=== PATIENT | male | born 1980 | race Caucasian/White ===

== ENCOUNTER 2017-08-20 10:05 | Inpatient (IN) | payer SELFPAY ==
[2017-08-20 10:39] LABS: ADD MAN DIFF? NO
[2017-08-20 10:42] LABS: BASO # 0.1 x10^3/uL (0.0-0.2); BASO % 1 % (0-3); EOS # 0.1 x10^3/uL (0.0-0.7); EOS % 1 % (0-3); HEMATOCRIT 44.4 % (39.0-53.0); HEMOGLOBIN 15.1 g/dL (13.0-17.5); LYMPH # 1.5 x10^3/uL (1.0-4.8); LYMPH % 15 % (24-48); MEAN CORPUSCULAR HEMOGLOBIN 30 pg (25-35); MEAN CORPUSCULAR HGB CONC 34 g/dL (31-37); MEAN CORPUSCULAR VOLUME 87 fL (79-100); MONO % 10 % (0-9); NEUT # 7.5 x10^3uL (1.8-7.7); NEUT % 74 % (31-73); PLATELET COUNT 172 x10^3/uL (140-400); RED BLOOD COUNT 5.09 x10^6/uL (4.30-5.70); RED CELL DISTRIBUTION WIDTH 13.5 % (11.5-14.5); WHITE BLOOD COUNT 10.1 x10^3/uL (4.0-11.0)
[2017-08-20 10:56] LABS: ANION GAP 13 (6-14); BLOOD UREA NITROGEN 18 mg/dL (8-26); BUN/CREATININE RATIO 18 (6-20); CALCIUM 8.2 mg/dL (8.5-10.1); CARBON DIOXIDE 27 mmol/L (21-32); CHLORIDE 104 mmol/L (98-107); GFR 84.1; GLUCOSE 120 mg/dL (70-99); POTASSIUM 3.1 mmol/L (3.5-5.1); SODIUM 144 mmol/L (136-145)
[2017-08-20] MEDS: IV NORMAL SALINE 1000ML BAG 1,000 ML IV ×2 (10:59→21:35)
[2017-08-20] MEDS: ASPIRIN CHEWABLE 81 MG TABLET. PO (11:00)
[2017-08-20] MEDS: NITROGLYCERIN SUBLINGUAL 0.4 MG BOTTLE OF 25. SL (11:00)
[2017-08-20 11:02] LABS: ALBUMIN 3.6 g/dL (3.4-5.0); ALBUMIN/GLOBULIN RATIO 1.1 (1.0-1.7); ALK PHOS 73 U/L (46-116); ALT (SGPT) 35 U/L (16-63); AST (SGOT) 35 U/L (15-37); LIPASE 133 U/L (73-393); TOTAL BILIRUBIN 0.7 mg/dL (0.2-1.0)
[2017-08-20 11:07] LABS: TROPONINI 6.403 ng/mL (0.000-0.055)
[2017-08-20] MEDS: ONDANSETRON PF 4 MG/2 ML VIAL. IV (11:15)
[2017-08-20] MEDS: POTASSIUM CHLORIDE 10MEQ 100 ML IV ×4 (11:46→14:49)
[2017-08-20] MEDS ORDERED: IODIXANOL 320 MG/ML 100 ML VIAL. (11:56)
[2017-08-20] MEDS ORDERED: LIDOCAINE 1% Multi-Dose 20 ML VIAL. (11:56)
[2017-08-20] MEDS: HEPARIN for IV BOLUS 10,000 UNIT/10 ML VIAL. IV (12:00)
[2017-08-20] MEDS ORDERED: fentaNYL PF VIAL 100 MCG/2 ML VIAL (12:03)
[2017-08-20] MEDS ORDERED: MIDAZOLAM HCL/PF 5 MG/5 ML VIAL. (12:04)
[2017-08-20] MEDS: HEPARIN 25,000UTS/500ML PREMIX 500 ML IV (12:07)
[2017-08-20] MEDS: fentaNYL PF VIAL 100 MCG/2 ML VIAL IV ×4 (12:10→16:58)
[2017-08-20] MEDS: IODIXANOL 320 MG/ML 100 ML VIAL. IART (13:10)
[2017-08-20] MEDS: LIDOCAINE 2% 20 ML VIAL. IJ (13:11)
[2017-08-20] MEDS: MIDAZOLAM HCL/PF 5 MG/5 ML VIAL. IV (13:12)
[2017-08-20] MEDS ORDERED: NITROGLYCERIN SUBLINGUAL 0.4 MG BOTTLE OF 25. SL (13:45)
[2017-08-20] MEDS ORDERED: 0.9 % SODIUM CHLORIDE 10 ML DISP.SYRIN. IV (13:45)
[2017-08-20] MEDS ORDERED: ONDANSETRON PF 4 MG/2 ML VIAL. IV (17:15)
[2017-08-20 23:39] LABS: UNFRACTIONATED HEPARIN TESTING < 0.10 IU/mL (0.30-0.70)
[2017-08-21] MEDS: HEPARIN for IV BOLUS 10,000 UNIT/10 ML VIAL. IV ×2 (00:05→06:40)
[2017-08-21] MEDS: BISMUTH SUBSALICYLATE 262 MG/15 ML ORAL.SUSP 236ML BOTTLE. PO (00:11)
[2017-08-21 06:11] LABS: HEMATOCRIT 42.5 % (39.0-53.0); HEMOGLOBIN 14.3 g/dL (13.0-17.5); MEAN CORPUSCULAR HEMOGLOBIN 30 pg (25-35); MEAN CORPUSCULAR HGB CONC 34 g/dL (31-37); MEAN CORPUSCULAR VOLUME 88 fL (79-100); PLATELET COUNT 168 x10^3/uL (140-400); RED BLOOD COUNT 4.81 x10^6/uL (4.30-5.70); RED CELL DISTRIBUTION WIDTH 13.5 % (11.5-14.5); WHITE BLOOD COUNT 8.6 x10^3/uL (4.0-11.0)
[2017-08-21 06:20] LABS: UNFRACTIONATED HEPARIN TESTING 0.17 IU/mL (0.30-0.70)
[2017-08-21 07:02] LABS: ALBUMIN 3.1 g/dL (3.4-5.0); ALK PHOS 65 U/L (46-116); ALT (SGPT) 37 U/L (16-63); ANION GAP 10 (6-14); AST (SGOT) 46 U/L (15-37); CALCIUM 7.5 mg/dL (8.5-10.1); CARBON DIOXIDE 24 mmol/L (21-32); CHLORIDE 108 mmol/L (98-107); CHOLESTEROL 117 mg/dL (0-200); CREATININE 0.9 mg/dL (0.7-1.3); DIRECT BILIRUBIN 0.1 mg/dL (0.0-0.2); GLUCOSE 94 mg/dL (70-99); HDLC 23 mg/dL (40-60); LDLC 74 mg/dL (0-100); MAGNESIUM 1.9 mg/dL (1.8-2.4); NON-HDL CHOLESTEROL 94 mg/dL (0-129); POTASSIUM 3.9 mmol/L (3.5-5.1); SODIUM 142 mmol/L (136-145); TOTAL BILIRUBIN 0.5 mg/dL (0.2-1.0); TOTAL PROTEIN 6.5 g/dL (6.4-8.2); TRIGLYCERIDES 101 mg/dL (0-150); VLDLC 20 mg/dL (0-40)
[2017-08-21 07:09] LABS: BLOOD UREA NITROGEN 8 mg/dL (8-26); CHOLESTEROL/HDL RATIO 5.1
[2017-08-21] MEDS: FLU VACC QS2017-18 (36MOS+)/PF 0.5 ML SYRINGE. VAX IM (07:15)
[2017-08-21] MEDS: PNEUMOC CONJ VACC 23-VALENT 0.5 ML VIAL. VAX IM (07:19)
[2017-08-21 07:20] LABS: TROPONINI 4.995 ng/mL (0.000-0.055)
[2017-08-21 08:13] LABS: AMPHETAMINE/METHAMPHETAMINE NEG (NEG); BARBITURATES NEG (NEG); BENZODIAZEPINES NEG (NEG); CANNABINOIDS NEG (NEG); COCAINE POS (NEG); ETHANOL, URINE NEG (NEG); METHADONE NEG (NEG); OPIATES NEG (NEG); PHENCYCLIDINE NEG (NEG)
[2017-08-21] MEDS: ASPIRIN ENTERIC COATED 81 MG TABLET.DR. PO (08:45)
[2017-08-21] MEDS: LOPERAMIDE 2 MG CAPSULE PO (09:50)
[2017-08-21] MEDS ORDERED: METOPROLOL SUCC 24HR ER 25 MG TAB.ER.24H. PO (15:15)
[2017-08-21] MEDS: METOPROLOL SUCC 24HR ER 25 MG TAB.ER.24H. PO (18:20)
[2017-08-22 05:48] LABS: ADD MAN DIFF? NO
[2017-08-22 05:56] LABS: BASO % 0 % (0-3); EOS # 0.2 x10^3/uL (0.0-0.7); EOS % 3 % (0-3); HEMATOCRIT 43.8 % (39.0-53.0); HEMOGLOBIN 14.8 g/dL (13.0-17.5); LYMPH # 2.2 x10^3/uL (1.0-4.8); LYMPH % 31 % (24-48); MEAN CORPUSCULAR HEMOGLOBIN 30 pg (25-35); MEAN CORPUSCULAR HGB CONC 34 g/dL (31-37); MEAN CORPUSCULAR VOLUME 88 fL (79-100); MONO # 0.8 x10^3/uL (0.0-1.1); MONO % 11 % (0-9); NEUT # 3.9 x10^3uL (1.8-7.7); NEUT % 55 % (31-73); PLATELET COUNT 198 x10^3/uL (140-400); RED BLOOD COUNT 4.97 x10^6/uL (4.30-5.70); RED CELL DISTRIBUTION WIDTH 13.6 % (11.5-14.5); WHITE BLOOD COUNT 7.1 x10^3/uL (4.0-11.0)
[2017-08-22 06:35] LABS: ALBUMIN 3.3 g/dL (3.4-5.0); ALK PHOS 68 U/L (46-116); ALT (SGPT) 40 U/L (16-63); ANION GAP 10 (6-14); AST (SGOT) 46 U/L (15-37); BLOOD UREA NITROGEN 11 mg/dL (8-26); BUN/CREATININE RATIO 12 (6-20); CALCIUM 8.3 mg/dL (8.5-10.1); CARBON DIOXIDE 26 mmol/L (21-32); CHLORIDE 107 mmol/L (98-107); CREATININE 0.9 mg/dL (0.7-1.3); GLUCOSE 83 mg/dL (70-99); POTASSIUM 3.5 mmol/L (3.5-5.1); SODIUM 143 mmol/L (136-145); TOTAL BILIRUBIN 0.4 mg/dL (0.2-1.0); TOTAL PROTEIN 6.7 g/dL (6.4-8.2)
[2017-08-22] MEDS: ASPIRIN ENTERIC COATED 81 MG TABLET.DR. PO (08:45)
[2017-08-22] MEDS: CLOPIDOGREL BISULFATE 75 MG TABLET PO (08:45)
[2017-08-22] MEDS: METOPROLOL TART IMMED RELEASE 25 MG TABLET. PO (17:26)
[2017-08-22] MEDS ORDERED: ATORVASTATIN CALCIUM 10 MG TABLET. PO (21:00)
== END 2017-08-22 17:30 | disposition home or self-care (01) | DRG 281 ==
LOC: ER 10:05 → 2 SOUTH 11:00
PROC: B2111ZZ Fluoroscopy of Multiple Coronary Arteries using Low Osmolar Contrast (ICD-10-PCS; principal; 2017-08-20)
DX: I21.4 Non-ST elevation (NSTEMI) myocardial infarction (principal); I47.2 Ventricular tachycardia; E87.6 Hypokalemia; F14.10 Cocaine abuse, uncomplicated; F17.200 Nicotine dependence, unspecified, uncomplicated; I25.10 Atherosclerotic heart disease of native coronary artery without angina pectoris; Z82.3 Family history of stroke; Z82.49 Family history of ischemic heart disease and other diseases of the circulatory system; Z90.49 Acquired absence of other specified parts of digestive tract
CPT/HCPCS: 36415; 71045; 80048; 80053; 80061; 80076; 80307; 83690; 83735; 84484; 85025; 85027; 85520; 90686; 90732; 93005; 93306; 93454; 99152; 99153; 99285; 99285-25; 99406; C1769; C1771; C1892; G0269; J1644; J2250; J3010; J3480; J7030

== ENCOUNTER 2019-02-12 09:47 | Emergency (ER) | payer BC ==
[~2019-02-12] VITALS: Ht 182.9 cm; Wt 91.2 kg
[~2019-02-12 09:47] MED LIST: ASPI-630 PO; ATOR10TA PO; CLOP75TA PO; METO25TA4 PO
[2019-02-12 10:11] VITALS: BP 122/77
--- NOTE | 2019-02-12 11:11 | PHYS DOC ---
Past Medical History Past Medical History: No Pertinent History Past Surgical History: Appendectomy Smoking: Cigarettes, Less than 1pk/day Alcohol Use: None Drug Use: None Adult General Chief Complaint Chief Complaint: HAND PROBLEM HPI HPI Patient is a 38 year old who presents after punching a wall 2 days ago. The patient complains of right hand pain. The patient also states he woke up this morning and his R hand was edematous, and red. Also streaking up the forearm. When he punched a wall 2 days ago he cut his hand. Rates his pain as 8 out of 10 and throbbing. Has not taken any medications prior to arrival. Has not been seen for this before today. Review of Systems Review of Systems Constitutional: Denies fever or chills [] Eyes: Denies change in visual acuity, redness, or eye pain [] HENT: Denies nasal congestion or sore throat [] Respiratory: Denies cough or shortness of breath [] Cardiovascular: No additional information not addressed in HPI [] GI: Denies abdominal pain, nausea, vomiting, bloody stools or diarrhea [] : Denies dysuria or hematuria [] Musculoskeletal: Denies back pain. Reports R hand pain. Integument: Denies rash or skin lesions. Reports redness to R hand. Neurologic: Denies headache, focal weakness or sensory changes [] Endocrine: Denies polyuria or polydipsia [] Complete systems were reviewed and found to be within normal limits, except as documented in this note. Current Medications Current Medications Current Medications Medications (Trade) Dose Ordered Sig/[facility] Start Time Stop Time Status Last Admin Dose Admin Clindamycin Phosphate 50 ml @ 100 mls/hr 1X ONCE 02/12/19 11:00 02/12/19 11:29 DC 02/12/19 11:27 100 MLS/HR Ketorolac Tromethamine (Toradol 15mg Vial) 15 mg 1X ONCE 02/12/19 11:00 02/12/19 11:01 DC 02/12/19 11:27 15 MG Allergies Allergies Allergies Coded Allergies Type Severity Reaction Last Updated Verified No Known Drug Allergies 08/20/17 No Physical Exam Physical Exam Constitutional: Well developed, well nourished, no acute distress, non-toxic appearance. [] HENT: Normocephalic, atraumatic, bilateral external ears normal, oropharynx moist, no oral exudates, nose normal. [] Eyes: PERRLA, EOMI, conjunctiva normal, no discharge. [] Neck: Normal range of motion, no tenderness, supple, no stridor. [] Cardiovascular:Heart rate regular rhythm, no murmur [] Lungs & Thorax: Bilateral breath sounds clear to auscultation [] Abdomen: Bowel sounds normal, soft, no tenderness, no masses, no pulsatile masses. [] Skin: R hand is hot to touch, edematous, and erythematous with streaking up the R forearm. Back: No tenderness, no CVA tenderness. [] Extremities: Tenderness to R hand, no cyanosis, no clubbing, ROM reduced, edema to R hand, and erythematous.[] Neurologic: Alert and oriented X 3, normal motor function, normal sensory function, no focal deficits noted. [] Psychologic: Affect normal, judgement normal, mood normal. [] Current Patient Data Vital Signs Vital Signs Date Time Temp Pulse Resp B/P (MAP) Pulse Ox O2 Delivery O2 Flow Rate FiO2 02/12/19 10:11 98.1 76 16 122/77 (92) 100 Room Air 98.1 Lab Values Laboratory Tests Test 02/12/19 11:12 White Blood Count 13.1 x10^3/uL (4.0-11.0) H Red Blood Count 5.28 x10^6/uL (4.30-5.70) Hemoglobin 16.0 g/dL (13.0-17.5) Hematocrit 46.6 % (39.0-53.0) Mean Corpuscular Volume 88 fL (79-100) Mean Corpuscular Hemoglobin 30 pg (25-35) Mean Corpuscular Hemoglobin Concent 34 g/dL (31-37) Red Cell Distribution Width 13.0 % (11.5-14.5) Platelet Count 192 x10^3/uL (140-400) Neutrophils (%) (Auto) 67 % (31-73) Lymphocytes (%) (Auto) 22 % (24-48) L Monocytes (%) (Auto) 9 % (0-9) Eosinophils (%) (Auto) 1 % (0-3) Basophils (%) (Auto) 0 % (0-3) Neutrophils # (Auto) 8.8 x10^3uL (1.8-7.7) H Lymphocytes # (Auto) 2.9 x10^3/uL (1.0-4.8) Monocytes # (Auto) 1.2 x10^3/uL (0.0-1.1) H Eosinophils # (Auto) 0.2 x10^3/uL (0.0-0.7) Basophils # (Auto) 0.1 x10^3/uL (0.0-0.2) Sodium Level 141 mmol/L (136-145) Potassium Level 3.5 mmol/L (3.5-5.1) Chloride Level 106 mmol/L (98-107) Carbon Dioxide Level 27 mmol/L (21-32) Anion Gap 8 (6-14) Blood Urea Nitrogen 11 mg/dL (8-26) Creatinine 1.2 mg/dL (0.7-1.3) Estimated GFR (Cockcroft-Gault) 67.4 BUN/Creatinine Ratio 9 (6-20) Glucose Level 130 mg/dL (70-99) H Calcium Level 8.1 mg/dL (8.5-10.1) L Total Bilirubin 0.5 mg/dL (0.2-1.0) Aspartate Amino Transferase (AST) 20 U/L (15-37) Alanine Aminotransferase (ALT) 27 U/L (16-63) Alkaline Phosphatase 74 U/L (46-116) Total Protein 6.4 g/dL (6.4-8.2) Albumin 3.4 g/dL (3.4-5.0) Albumin/Globulin Ratio 1.1 (1.0-1.7) Laboratory Tests 02/12/19 11:12 Laboratory Tests 02/12/19 11:12 EKG EKG [] Radiology/Procedures Radiology/Procedures []PATIENT: BRIGETTE LEAL [facility] HEALTHOUNT: [id number]#: [id number] : 1980 LOCATION: ER AGE: 38 SEX: M EXAM STATUS: REG ER ORD. PHYSICIAN: SHARONA KEATING APRN REASON: punched wall 2 days ago, rt hand pain, redness, swelling PROCEDURE: HAND RIGHT 3V Right hand, 3 views, 02/12/2019: HISTORY: Right hand redness, swelling, injury There is deformity of the fifth metacarpal compatible with an old healed fracture. No acute fracture or dislocation is identified. There is soft tissue swelling over the metacarpal region. There are mild degenerative changes at scattered interphalangeal joints and the fifth CMC joint. IMPRESSION: 1. Old right fifth metacarpal fracture. 2. No acute bony abnormality is detected. Electronically signed by: Aden Sibley MD (02/12/2019 11:47 AM) [facility] Course & Med Decision Making Course & Med Decision Making Pertinent Labs and Imaging studies reviewed. (See chart for details) Will get x-ray of hand, labs, IV Clindamycin. X-ray is negative. Labs shows slightly elevated WBC count. Will send home on script of clindamycin. Does not appear to be toxic. Clindamycin has improved cellulitis some. Dragon Disclaimer Dragon Disclaimer This electronic medical record was generated, in whole or in part, using a voice recognition dictation system. Departure Departure Impression: Primary Impression: Cellulitis of hand, right Disposition: HOME, SELF-CARE Condition: STABLE Referrals: NO PCP (PCP) Patient Instructions: Cellulitis Additional Instructions: Thank you for visiting [facility]. We appreciate you trusting us with your care. If any additional problems come up don't hesitate to return to visit us. Please follow up with your primary care provider so they can plan additional care if needed and know about the problem that you had. If symptoms worsen come back to the Emergency Department. Any concerning symptoms that start such as chest pain, shortness of Air, weakness or numbness on one side of the body, running high fevers or any other concerning symptoms return to the ER. Please fill your medications at any pharmacy and follow the prescription instructions. You have been prescribed an antibiotic today to help fight your infection. Please take all of the antibiotic as directed. If after 48 hours the infection is not improving, please return for more care. If the infection worsens, return to ER for additional care. Scripts Clindamycin Hcl (CLINDAMYCIN HCL) 150 Mg Capsule 450 MG PO TID for 7 Days, #63 CAP Prov: SHARONA KEATING APRN 02/12/19 SHARONA KEATING APRN Feb 12, 2019 11:11
[2019-02-12] MEDS: KETOROLAC 15 MG/ML VIAL. IV ONE (11:27)
[2019-02-12] MEDS: CLINDAMYCIN 600MG PREMIX 50 ML IV ONE (11:27)
[2019-02-12 11:28] LABS: BASO # 0.1 x10^3/uL (0.0-0.2); BASO % 0 % (0-3); EOS # 0.2 x10^3/uL (0.0-0.7); EOS % 1 % (0-3); HEMATOCRIT 46.6 % (39.0-53.0); LYMPH # 2.9 x10^3/uL (1.0-4.8); LYMPH % 22 % (24-48); MEAN CORPUSCULAR HEMOGLOBIN 30 pg (25-35); MEAN CORPUSCULAR HGB CONC 34 g/dL (31-37); MEAN CORPUSCULAR VOLUME 88 fL (79-100); MONO # 1.2 x10^3/uL (0.0-1.1); MONO % 9 % (0-9); NEUT # 8.8 x10^3uL (1.8-7.7); NEUT % 67 % (31-73); PLATELET COUNT 192 x10^3/uL (140-400); RED BLOOD COUNT 5.28 x10^6/uL (4.30-5.70); WHITE BLOOD COUNT 13.1 x10^3/uL (4.0-11.0)
[2019-02-12 11:39] LABS: CALCIUM 8.1 mg/dL (8.5-10.1); CREATININE 1.2 mg/dL (0.7-1.3); GFR 67.4; POTASSIUM 3.5 mmol/L (3.5-5.1)
[2019-02-12 11:44] LABS: ALBUMIN 3.4 g/dL (3.4-5.0); ALBUMIN/GLOBULIN RATIO 1.1 (1.0-1.7); TOTAL BILIRUBIN 0.5 mg/dL (0.2-1.0); TOTAL PROTEIN 6.4 g/dL (6.4-8.2)
--- NOTE | 2019-02-12 11:49 | RAD ---
Right hand, 3 views, 02/12/2019: HISTORY: Right hand redness, swelling, injury There is deformity of the fifth metacarpal compatible with an old healed fracture. No acute fracture or dislocation is identified. There is soft tissue swelling over the metacarpal region. There are mild degenerative changes at scattered interphalangeal joints and the fifth CMC joint. IMPRESSION: 1. Old right fifth metacarpal fracture. 2. No acute bony abnormality is detected. Electronically signed by: Aden Sibley MD (02/12/2019 11:47 AM) [facility]
[2019-02-12] MEDS ORDERED: CLIN150C14 PO (12:23)
[2019-02-16] MEDS ORDERED: CIPR500T94 PO (13:44)
[2019-02-16] MEDS ORDERED: LINE600T PO (13:44)
[2019-02-16] MEDS ORDERED: HYDR-2761 PO (13:45)
== END 2019-02-12 12:45 | disposition home or self-care (01) ==
LOC: ER 09:47
DX: L03.113 Cellulitis of right upper limb (principal)
CPT/HCPCS: 36415; 73130; 80053; 85025; 96365; 96375; J1885; J3490; 99285-25

== ENCOUNTER 2020-04-23 03:45 | Emergency (ER) | payer BC ==
[~2020-04-23] VITALS: Ht 185.4 cm; Wt 88.0 kg
[~2020-04-23 03:45] MED LIST changes: +CIPR500T94 PO; +CLIN150C14 PO; +HYDR-2761 PO; +LINE600T12 PO
[2020-04-23] MEDS ORDERED: IV NORMAL SALINE 1000ML BAG 1,000 ML IV ONE (04:45)
[2020-04-23 04:49] LABS: BASO # 0.1 x10^3/uL (0.0-0.2); BASO % 1 % (0-3); EOS # 0.2 x10^3/uL (0.0-0.7); EOS % 2 % (0-3); HEMATOCRIT 47.6 % (39.0-53.0); HEMOGLOBIN 16.6 g/dL (13.0-17.5); LYMPH # 3.5 x10^3/uL (1.0-4.8); LYMPH % 41 % (24-48); MEAN CORPUSCULAR HEMOGLOBIN 31 pg (25-35); MEAN CORPUSCULAR HGB CONC 35 g/dL (31-37); MEAN CORPUSCULAR VOLUME 88 fL (79-100); MONO # 0.8 x10^3/uL (0.0-1.1); MONO % 9 % (0-9); NEUT # 4.1 x10^3/uL (1.8-7.7); NEUT % 48 % (31-73); PLATELET COUNT 207 x10^3/uL (140-400); RED CELL DISTRIBUTION WIDTH 13.2 % (11.5-14.5); WHITE BLOOD COUNT 8.7 x10^3/uL (4.0-11.0)
[2020-04-23 05:01] LABS: CALCIUM 8.6 mg/dL (8.5-10.1); GFR 82.8; POTASSIUM 3.4 mmol/L (3.5-5.1)
[2020-04-23 05:07] LABS: ALBUMIN 3.8 g/dL (3.4-5.0); ALBUMIN/GLOBULIN RATIO 1.2 (1.0-1.7); TOTAL BILIRUBIN 0.4 mg/dL (0.2-1.0)
--- NOTE | 2020-04-23 05:20 | RAD ---
INDICATION: Reason: lightheaded / Spl. Instructions: / History: COMPARISON: August 2017 FINDINGS: Single view of chest obtained. Hypoexpanded examination of the lungs without focal airspace consolidation. The cardiac silhouette is prominent in size but similar to prior and likely exaggerated by portable technique. There are either some pulmonary nodules or vessels seen on end. IMPRESSION: * Hypoexpanded exam without new region of consolidation. Electronically signed by: René Tijerina MD (04/23/2020 5:18 AM) [id number]
--- NOTE | 2020-04-23 05:33 | PHYS DOC ---
Past Medical History Past Medical History: No Pertinent History Past Surgical History: Appendectomy Smoking Status: Current Every Day Smoker Alcohol Use: None Drug Use: None General Adult EDM: Chief Complaint: DIZZY/LIGHT HEADED HPI: HPI: The history was obtained from the patient. Patient is a 39-year-old male with no reported PMH who presents with a chief complaint of general fatigue and inter mittent lightheadedness. Patient states he is generally fatigued over the past 4 days. Notes some intermittent lightheadedness. Denies any exertional component to his symptoms. Denies any chest pain or shortness of breath. Denies any feelings of irregular rapid heartbeat. Notes he has had some blood- streaked stools over the past 4 days. He states he does have a history of this. He does note that he has had normal bowel movements without blood in it over that same time period as well. Denies abdominal pain. Denies syncope. Does not take blood thinners. Does never had a colonoscopy in the past. Denies pain with bowel movement. Denies any alcohol usage. States he uses cocaine occ asionally but last use 1 month ago. Denies any known exposure to coronavirus. Denies objective fevers. Denies any positional related lightheadedness or vertiginous symptoms. Denies any headaches. No other complaints. Review of Systems: Review of Systems: Constitutional: Denies fever or chills. [] Eyes: Denies change in visual acuity. [] HENT: Denies nasal congestion or sore throat. [] Respiratory: Denies cough or shortness of breath. [] Cardiovascular: Positive for lightheadedness GI: Denies abdominal pain, nausea, vomiting, bloody stools or diarrhea. [] : Positive for blood in stool Musculoskeletal: Denies back pain or joint pain. [] Integument: Denies rash. [] Neurologic: Denies headache, focal weakness or sensory changes. [] Endocrine: Denies polyuria or polydipsia. [] Lymphatic: Denies swollen glands. [] Psychiatric: Denies depression or anxiety. [] Heart Score: Risk Factors: Risk Factors: DM, Current or recent (<one month) smoker, HTN, HLP, family history of CAD, obesity. Risk Scores: Score 0 - 3: 2.5% MACE over next 6 weeks - Discharge Home Score 4 - 6: 20.3% MACE over next 6 weeks - Admit for Clinical Observation Score 7 - 10: 72.7% MACE over next 6 weeks - Early Invasive Strategies Current Medications: Current Medications Medications (Trade) Dose Ordered Sig/Nathaly Start Time Stop Time Status Last Admin Dose Admin Sodium Chloride 1,000 ml @ 1,000 mls/hr 1X ONCE 04/23/20 04:45 04/23/20 05:44 04/23/20 04:39 1,000 MLS/HR Allergies: Allergies: Allergies Coded Allergies Type Severity Reaction Last Updated Verified No Known Drug Allergies 08/20/17 No Physical Exam: PE: Constitutional: Well developed, well nourished, no acute distress, non-toxic appearance. [] HENT: Normocephalic, atraumatic, bilateral external ears normal, oropharynx moist, no oral exudates, nose normal. [] Eyes: PERRLA, EOMI, conjunctiva normal, no discharge. [] Neck: Normal range of motion, no tenderness, supple, no stridor. [] Cardiovascular:Heart rate regular rhythm, no murmur [] Lungs & Thorax: Bilateral breath sounds clear to auscultation [] Abdomen: Soft, nontender, nonacute abdomen. No involuntary guarding or rigidity noted. No acute peritonitis. : Rectal exam negative for gross blood. No external hemorrhoids or fissure visualized. No palpable internal hemorrhoid. Skin: Warm, dry, no erythema, no rash. [] Back: No tenderness, no CVA tenderness. [] Extremities: No tenderness, no cyanosis, no clubbing, ROM intact, no edema. [] Neurologic: Alert and oriented X 3, normal motor function, normal sensory function, no focal deficits noted. [] Psychologic: Affect normal, judgement normal, mood normal. [] Current Patient Data: Labs: Laboratory Tests Test 04/23/20 04:39 White Blood Count 8.7 x10^3/uL (4.0-11.0) Red Blood Count 5.40 x10^6/uL (4.30-5.70) Hemoglobin 16.6 g/dL (13.0-17.5) Hematocrit 47.6 % (39.0-53.0) Mean Corpuscular Volume 88 fL (79-100) Mean Corpuscular Hemoglobin 31 pg (25-35) Mean Corpuscular Hemoglobin Concent 35 g/dL (31-37) Red Cell Distribution Width 13.2 % (11.5-14.5) Platelet Count 207 x10^3/uL (140-400) Neutrophils (%) (Auto) 48 % (31-73) Lymphocytes (%) (Auto) 41 % (24-48) Monocytes (%) (Auto) 9 % (0-9) Eosinophils (%) (Auto) 2 % (0-3) Basophils (%) (Auto) 1 % (0-3) Neutrophils # (Auto) 4.1 x10^3/uL (1.8-7.7) Lymphocytes # (Auto) 3.5 x10^3/uL (1.0-4.8) Monocytes # (Auto) 0.8 x10^3/uL (0.0-1.1) Eosinophils # (Auto) 0.2 x10^3/uL (0.0-0.7) Basophils # (Auto) 0.1 x10^3/uL (0.0-0.2) Sodium Level 143 mmol/L (136-145) Potassium Level 3.4 mmol/L (3.5-5.1) L Chloride Level 105 mmol/L (98-107) Carbon Dioxide Level 32 mmol/L (21-32) Anion Gap 6 (6-14) Blood Urea Nitrogen 14 mg/dL (8-26) Creatinine 1.0 mg/dL (0.7-1.3) Estimated GFR (Cockcroft-Gault) 82.8 BUN/Creatinine Ratio 14 (6-20) Glucose Level 97 mg/dL (70-99) Calcium Level 8.6 mg/dL (8.5-10.1) Total Bilirubin 0.4 mg/dL (0.2-1.0) Aspartate Amino Transferase (AST) 13 U/L (15-37) L Alanine Aminotransferase (ALT) 24 U/L (16-63) Alkaline Phosphatase 61 U/L (46-116) Troponin I Quantitative < 0.017 ng/mL (0.000-0.055) Total Protein 7.0 g/dL (6.4-8.2) Albumin 3.8 g/dL (3.4-5.0) Albumin/Globulin Ratio 1.2 (1.0-1.7) Laboratory Tests 04/23/20 04:39 Laboratory Tests 04/23/20 04:39 Vital Signs: Vital Signs Date Time Temp Pulse Resp B/P (MAP) Pulse Ox O2 Delivery O2 Flow Rate FiO2 04/23/20 04:14 97.6 67 18 127/92 (104) 100 Room Air 97.6 EKG: EKG: EKG consistent with normal sinus rhythm. Ventricular rate of 61 bpm. [place] normal. Intervals normal. No acute ischemic changes appreciated. [] Radiology/Procedures: Radiology/Procedures: [][facility] [address] [place] [address] IMAGING REPORT Signed PATIENT: BRIGETTE LEAL ACCOUNT: [id number] : 1980 LOCATION: ER AGE: 39 SEX: M EXAM STATUS: REG ER ORD. PHYSICIAN: KAMRON MARIN DO REASON: lightheaded PROCEDURE: CHEST AP ONLY INDICATION: Reason: lightheaded / Spl. Instructions: / History: COMPARISON: August 2017 FINDINGS: Single view of chest obtained. Hypoexpanded examination of the lungs without focal airspace consolidation. The cardiac silhouette is prominent in size but similar to prior and likely exaggerated by portable technique. There are either some pulmonary nodules or vessels seen on end. IMPRESSION: * Hypoexpanded exam without new region of consolidation. Electronically signed by: Camilla Tijerina MD (04/23/2020 5:18 AM) [id number] DICTATED and SIGNED BY: CAMILLA TIJERINA MD DATE: 04/23/2018 Course & Med Decision Making: Course & Med Decision Making Pertinent Labs and Imaging studies reviewed. (See chart for details) [] Patient is a well-appearing 39-year-old male who presents with chief complaint of general fatigue and intermittent lightheadedness. Initial vital signs unremarkable. EKG without concerning changes. Basic labs unremarkable. Including normal troponin. Chest x-ray nonacute. She was given IV fluids. On repeat examination his exam remains unchanged. Vital signs remained stable. He has been amatory the emergency department without symptoms. Overall I do feel he is appropriate for discharge home. Unclear whether the patient is experiencing near syncopal events but patient does not have a high [place] syncope score. I do feel he is appropriate for discharge home. He is in agreement with this. Low suspicion for ACS as he denies any chest pain. PERC negative. Patient was instructed to follow-up with his primary care physician in the next 2 to 3 days. He was encouraged to report back to emergency department 1 to 2 days should his symptoms not improve or worsen. Stable for discharge home. Dragon Disclaimer: Dragon Disclaimer: This electronic medical record was generated, in whole or in part, using a voice recognition dictation system. Departure Departure Impression: Primary Impression: Lightheaded Additional Impression: Fatigue Qualified Codes: R53.83 - Other fatigue Disposition: HOME, SELF-CARE Condition: STABLE Referrals: NO PCP (PCP) Patient Instructions: Near-Syncope Additional Instructions: [facility] [address] [place] [address] [facility] [address] [place] [address] [facility] [address] [facility] [place] [address] [facility] [address] [place] [address] [facility] [address] [place] [address] [facility] [address] [place] [address] [facility] [address] [place] [address] [facility] [address] [place] [address] [facility] [address] [place] [address] [facility] [address] [place] [address] Justicifation of Admission Dx: Justifications for Admission: Justification of Admission Dx: N/A KAMRON MAIRN DO Apr 23, 2020 05:33
[2020-04-23 05:41] VITALS: BP 110/69
--- NOTE | 2020-04-23 07:19 | EKG ---
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
== END 2020-04-23 05:58 | disposition home or self-care (01) ==
LOC: ER 03:45
DX: R42 Dizziness and giddiness (principal); R53.83 Other fatigue; F17.200 Nicotine dependence, unspecified, uncomplicated; Z90.89 Acquired absence of other organs
CPT/HCPCS: 36415; 71045; 80053; 84484; 85025; 93005; 96360; 99285; J7030